=== PATIENT | female | born 1970 | race Two or more races ===

== ENCOUNTER 2018-01-20 15:30 | Inpatient (IN) | payer BC ==
[~2018-01-20] VITALS: Ht 149.9 cm; Wt 71.7 kg
[2018-01-20 17:11] LABS: Urine Bacteria NONE SEEN /hpf (None Seen); Urine Blood 1+ /uL (Negative); Urine Mucus FEW (None Seen); Urine WBC 5 /hpf (0 - 5)
[2018-01-20 17:14] LABS: Basophils # (auto) 0 uL; Basophils % (auto) 0.3 % (0.0-2.0); Eosinophils # (auto) 0 uL; Eosinophils % (auto) 0.3 % (0.0-7.0); Hematocrit 40.5 % (36.0-46.0); Hemoglobin 13.9 g/dL (12.2-16.2); Lymphocytes # (auto) 1.9 uL; Lymphocytes % (auto) 20.3 % (10.0-50.0); Mean Corpuscular Hgb Conc. 34.5 g/dL (32.0-36.0); Mean Corpuscular Volume 95.9 fL (80.0-100.0); Monocytes # (auto) 0.8 uL; Monocytes % (auto) 8.4 % (0.0-12.0); Neutrophils # (auto) 6.6 uL; Neutrophils % (auto) 70.7 % (37.0-80.0); Nucleated Red Blood Cells % 0.2 %; Platelet Count (auto) 312 10^3/uL (140-450); Red Blood Cells 4.22 10^6/uL (4.0-5.20); Red Cell Distribution Width 12.6 % (11.8-14.3); White Blood Cell 9.3 10^3/uL (4.4-10.8)
[2018-01-20 17:29] LABS: Albumin 3.8 g/dL (3.4-5.0); Calcium 8.8 mg/dL (8.5-10.1)
[2018-01-20 17:34] LABS: Bilirubin, Total 0.4 mg/dL (0.2-1.0)
[2018-01-20] MEDS ORDERED: MORPHINE SULFATE 4 MG/ML SYR/VIAL IV PRN (21:30)
[2018-01-20] MEDS ORDERED: HYDROcodone-ACET 5/325MG TAB PO PRN (21:30)
[2018-01-20] MEDS ORDERED: ONDANSETRON HCL 4 MG/2 ML VIAL IV PRN (21:30)
[2018-01-20] MEDS: SODIUM CHLORIDE 0.9% 1,000 ML IV SCH (21:47)
[2018-01-20] MEDS ORDERED: methylPREDNISolone SOD SUCC 40 MG/ML VL IV ONE (22:30)
[2018-01-20] MEDS ORDERED: metroNIDAZOLE 500MG/100ML 100 ML IV ONE (22:45)
[2018-01-20 22:56] VITALS: BP 131/73
[2018-01-20] MEDS: ACETAMINOPHEN 500 MG TAB PO PRN (23:20)
[2018-01-21] VITALS (7 sets, daily range): BP systolic 101–135; BP diastolic 67–81
[2018-01-21 06:07] LABS: Basophils # (auto) 0 uL; Basophils % (auto) 0.1 % (0.0-2.0); Eosinophils # (auto) 0 uL; Eosinophils % (auto) 0.1 % (0.0-7.0); Hematocrit 41.6 % (36.0-46.0); Hemoglobin 14.2 g/dL (12.2-16.2); Lymphocytes # (auto) 0.9 uL; Lymphocytes % (auto) 17.1 % (10.0-50.0); Mean Corpuscular Hemoglobin 32.3 pg (28.0-32.0); Mean Corpuscular Volume 95.1 fL (80.0-100.0); Monocytes # (auto) 0.1 uL; Monocytes % (auto) 2.6 % (0.0-12.0); Neutrophils # (auto) 4.1 uL; Neutrophils % (auto) 80.1 % (37.0-80.0); Nucleated Red Blood Cells % 0.1 %; Platelet Count (auto) 326 10^3/uL (140-450); Red Blood Cells 4.38 10^6/uL (4.0-5.20); Red Cell Distribution Width 12.4 % (11.8-14.3); White Blood Cell 5.1 10^3/uL (4.4-10.8)
[2018-01-21 06:15] LABS: BUN/Creatinine Ratio 22.4; Potassium 4.2 mmol/L (3.5-5.1)
[2018-01-21] MEDS: SODIUM CHLORIDE 0.9% 1,000 ML IV SCH ×2 (07:30→10:42)
[2018-01-21] MEDS ORDERED: methylPREDNISolone SOD SUCC 40 MG/ML VL IV SCH (10:00)
[2018-01-21] MEDS: FOLIC ACID 1 MG TAB PO SCH (10:21)
[2018-01-21] MEDS: MULTIPLE VITAMIN TAB PO SCH (10:22)
[2018-01-21] MEDS ORDERED: cefTRIAXone 1GM/10ml IVPUSH 10 ML IV ONE (13:15)
[2018-01-21 14:02] LABS: INR 0.99 (0.9-1.15); Partial Thromboplastin Time 25.6 sec (22.64-33.71); Prothrombin Time 10.8 sec (9.37-12.3)
[2018-01-21] MEDS ORDERED: GOLYTELY 4L KIT PO ONE (14:30)
[2018-01-21] MEDS: metroNIDAZOLE 500MG/100ML 100 ML IV SCH ×2 (15:18→21:53)
[2018-01-21] MEDS: ACETAMINOPHEN 500 MG TAB PO PRN (20:32)
[2018-01-22] MEDS ORDERED: GOLYTELY 4L KIT PO ONE (06:00)
[2018-01-22] MEDS: metroNIDAZOLE 500MG/100ML 100 ML IV SCH ×3 (06:38→21:45)
[2018-01-22] MEDS: SODIUM CHLORIDE 0.9% 1,000 ML IV SCH ×3 (06:38→21:45)
[2018-01-22 08:41] VITALS: BP 121/72
[2018-01-22] MEDS: cefTRIAXone 1GM/10ml IVPUSH 10 ML IV SCH (08:41)
[2018-01-22] MEDS: FOLIC ACID 1 MG TAB PO SCH (09:38)
[2018-01-22] MEDS: MULTIPLE VITAMIN TAB PO SCH (09:38)
[2018-01-22] MEDS ORDERED: diphenhdrAMINE HCL 50 MG/1 ML VL ONE (11:13)
[2018-01-22 13:00] VITALS: BP 117/68
[2018-01-22] MEDS: MIDAZOLAM HCL 5 MG/ML-1ML VIAL ONE ×3 (15:35→15:43)
[2018-01-22] MEDS: fentaNYL CITRATE 100 MCG/2 ML VL ONE ×3 (15:35→15:43)
[2018-01-22 17:47] VITALS: BP 104/62
[2018-01-22] MEDS: ACETAMINOPHEN 500 MG TAB PO PRN (21:45)
[2018-01-22 22:00] VITALS: BP 103/57
[2018-01-23 05:19] VITALS: BP 88/57
[2018-01-23] MEDS: metroNIDAZOLE 500MG/100ML 100 ML IV SCH (06:36)
[2018-01-23 08:48] VITALS: BP 105/65
[2018-01-23] MEDS ORDERED: LEVO-28 PO (09:19)
[2018-01-23] MEDS ORDERED: METR500T PO (09:19)
[2018-01-23] MEDS: MULTIPLE VITAMIN TAB PO SCH (09:32)
[2018-01-23] MEDS: cefTRIAXone 1GM/10ml IVPUSH 10 ML IV SCH (09:32)
[2018-01-23] MEDS: FOLIC ACID 1 MG TAB PO SCH (09:32)
[2018-01-23 12:35] VITALS: BP 109/63
== END 2018-01-23 13:35 | disposition home or self-care (01) | DRG 392 ==
LOC: ER 15:30 → OVERFLOW 15:31 → WEST WING 22:17
PROVIDERS: ADMIT Nurse Practitioner Family; ATTEND Internal Medicine
PROC: 0DBL8ZX Excision of Transverse Colon, Via Natural or Artificial Opening Endoscopic, Diagnostic (ICD-10-PCS; principal; 2018-01-22 15:30)
DX: K52.9 Noninfective gastroenteritis and colitis, unspecified (principal); K57.30 Diverticulosis of large intestine without perforation or abscess without bleeding; K64.8 Other hemorrhoids; Z90.49 Acquired absence of other specified parts of digestive tract; Z90.710 Acquired absence of both cervix and uterus; Z91.041 Radiographic dye allergy status
CPT/HCPCS: 36415; 45380; 74176; 80048; 80053; 81001; 85025; 85048; 85610; 85730; J2250; J3490

== ENCOUNTER 2018-02-13 11:07 | Emergency (ER) | payer BC ==
[~2018-02-13] VITALS: Ht 149.9 cm; Wt 68.0 kg
[~2018-02-13 11:07] MED LIST: LEVO-28 PO; METR500T PO
[2018-02-13 11:19] VITALS: BP 113/76
[2018-02-13] MEDS ORDERED: ACETAMINOPHEN 500 MG TAB PO ONE (11:30)
[2018-02-13] MEDS ORDERED: KETOROLAC TROMETH 60MG/2ML VIAL IM ONE (12:30)
[2018-02-13 12:40] LABS: Urine Bacteria NONE SEEN /hpf (None Seen); Urine Blood 1+ /uL (Negative); Urine Mucus FEW (None Seen); Urine WBC 1 /hpf (0 - 5)
[2018-02-13 13:26] LABS: Albumin 3.8 g/dL (3.4-5.0); BUN/Creatinine Ratio 11.2; Bilirubin, Total 0.5 mg/dL (0.2-1.0); Calcium 8.3 mg/dL (8.5-10.1); Potassium 3.4 mmol/L (3.5-5.1); Total Protein 7.8 g/dL (6.4-8.2)
[2018-02-13 13:36] LABS: Basophils # (auto) 0 uL; Basophils % (auto) 0.2 % (0.0-2.0); Eosinophils # (auto) 0 uL; Hematocrit 40.8 % (36.0-46.0); Hemoglobin 13.9 g/dL (12.2-16.2); Lymphocytes # (auto) 0.8 uL; Lymphocytes % (auto) 11.1 % (10.0-50.0); Mean Corpuscular Hemoglobin 32.4 pg (28.0-32.0); Mean Corpuscular Hgb Conc. 34.2 g/dL (32.0-36.0); Mean Corpuscular Volume 94.9 fL (80.0-100.0); Monocytes # (auto) 0.4 uL; Monocytes % (auto) 5.4 % (0.0-12.0); Neutrophils # (auto) 6.1 uL; Neutrophils % (auto) 83.3 % (37.0-80.0); Platelet Count (auto) 303 10^3/uL (140-450); Red Cell Distribution Width 13.5 % (11.8-14.3); White Blood Cell 7.4 10^3/uL (4.4-10.8)
[2018-02-13] MEDS ORDERED: cefTRIAXone SOD 1,000 MG VL IM ONE (14:00)
[2018-02-18] MEDS ORDERED: PANT40TA2 PO (13:23)
== END 2018-02-13 14:19 | disposition home or self-care (01) ==
LOC: ER 11:07
DX: J02.9 Acute pharyngitis, unspecified (principal); H66.93 Otitis media, unspecified, bilateral
CPT/HCPCS: 36415; 71046; 80053; 81001; 81025; 85025; 96372; 99285; J0696; J1885